=== PATIENT | male | born 1990 | race African-American/Black ===

== ENCOUNTER 2019-11-03 17:13 | Emergency (ER) | payer OTHER ==
[~2019-11-03] VITALS: Ht 180.3 cm; Wt 85.5 kg
[2019-11-03 17:19] VITALS: BP 101/67
--- NOTE | 2019-11-03 17:21 | NUR ---
PT REFUSED C-COLLAR
--- NOTE | 2019-11-03 17:49 | NUR ---
Patient given discharge instructions and they have confirmed that they understand the instructions. Patient ambulatory with steady gait. Pt left with d/c paperwork, Rx, and all personal belongings. NADN. No needs expressed.
== END 2019-11-03 17:52 ==
LOC: ED 17:35
DX: S53.441A Ulnar collateral ligament sprain of right elbow, initial encounter (principal); S16.1XXA Strain of muscle, fascia and tendon at neck level, initial encounter; V49.9XXA Car occupant (driver) (passenger) injured in unspecified traffic accident, initial encounter; Y93.89 Activity, other specified; Y92.89 Other specified places as the place of occurrence of the external cause; Y99.8 Other external cause status
CPT/HCPCS: 99283